=== PATIENT | female | born 1995 ===

== ENCOUNTER 2016-04-25 13:53 | Emergency (ER) ==
[2016-04-25 13:53] VITALS: BMI 20.7
[2016-04-25 13:57] VITALS: BP 100/61; TEMP 96.3
--- NOTE | 2016-04-25 14:27 | ED.PDOC ---
General ED Provider: Dr. EB MERIDA JR Chief Complaint: Nausea/Vomiting Stated Complaint: when she tries to eat she gets nauseated. emesis x 1 yesterday. [ End ]2 days 96.3 52 18 98% 100/61 610 Time Seen by Physician: 14:22 Mode of Arrival: Walk-In Information Source: Patient Exam Limitations: No limitations Primary Care Provider: FIDEL KELSEY Nursing and Triage Documentation Reviewed and Agree: No Review of Systems - Review Of Systems Constitutional: Reports: Malaise Eyes: Reports: No symptoms Ears, Nose, Mouth, Throat: Reports: No symptoms Respiratory: Reports: No symptoms Cardiac: Reports: No symptoms GI: Reports: Abdominal pain, Nausea. Denies: Diarrhea, Vomiting : Reports: No symptoms, Other (lmp 2 weeks not sexually active- i have a girlfriend) Musculoskeletal: Reports: No symptoms Skin: Reports: No symptoms, Dryness Endocrine: Reports: No symptoms Hematologic/Lymphatic: Reports: No symptoms All Other Systems: Other Past Medical History - Past Medical History Previously Healthy: Yes Endocrine: Reports: None Cardiovascular: Reports: None Respiratory: Reports: None Hematological: Reports: None Gastrointestinal: Reports: None Genitourinary: Reports: None Neuro/Psych: Reports: None Musculoskeletal: Reports: None Cancer: Reports: None Last Menstrual Period: 2 weeks ago Other Pertinent Past Medical History: Pharyngitis on month ago. - Surgical History General Surgical History: Reports: None - Family History Family History: Reports: Other (no one else ill) - Social History Smoking Status: Current some day smoker, Light tobacco smoker Hx Substance Use: No Alcohol Screening: None Physical Exam - Physical Exam Appearance: Well-appearing, Thin Pain Distress: Mild Eyes: MANDY, EOMI, Conjunctiva clear ENT: Ears normal, Nose normal, Oropharynx normal Neck: Supple Respiratory: Airway patent, Breath sounds clear, Breath sounds equal, Respirations nonlabored Cardiovascular: RRR, Pulses normal, No rub, No murmur GI/: Soft, Tender (right periumbilical note piercing site abover umbilicus no edema no discharge no rebound) Musculoskeletal: Normal strength, ROM intact, No edema, No calf tenderness Skin: Warm, Dry, Normal color Neurological: Sensation intact, Motor intact, Reflexes intact, Cranial nerves intact, Alert, Oriented Psychiatric: Affect appropriate, Mood appropriate Critical Care Note - Critical Care Note Total Time (mins): 0 Course - Course Vital Signs: Temp Pulse Resp BP Pulse Ox 04/25/16 13:53 96.3 F L 52 L 18 100/61 98 Departure - Departure Time of Disposition: 14:36 Disposition: HOME SELF-CARE Discharge Problem: Nausea Instructions: Gastroenteritis (ED) Condition: Good Pt referred to PMD for follow-up: Yes Additional Instructions: may use phenergan for nausea avoid solids for 12 hours after nausea clear liquids as tolerated return if stomach pain worsens if fever over 101.0 Prescriptions: Promethazine HCl [Phenergan Tab] 25 mg PO QID PRN #12 tablet PRN Reason: Nausea / Vomiting Allergies/Adverse Reactions: Allergies No Known Allergies Allergy (Verified 04/25/16 13:57) Home Medications: Ambulatory Orders Promethazine HCl [Phenergan Tab] 25 mg PO QID PRN #12 tablet 04/25/16
== END 2016-04-25 14:51 | disposition home or self-care (01) ==
LOC: ED 13:53
DX: K52.9 Noninfective gastroenteritis and colitis, unspecified (principal); F17.210 Nicotine dependence, cigarettes, uncomplicated
CPT/HCPCS: 99282